=== PATIENT | female | born 1970 | race Caucasian/White ===

== ENCOUNTER 2017-04-12 14:09 | Outpatient (CLI) | payer BC ==
--- NOTE | 2017-04-12 15:56 | ULT ---
RIGHT UPPER QUADRANT ULTRASOUND 04/12/17 HISTORY: Abdominal pain. COMPARISON: None. TECHNIQUE: Utilizing multihertz transducer, sonographic imaging of the right upper quadrant is performed in the longitudinal and transverse plane. FINDINGS: There are multiple hepatic masses. Largest mass in the left hepatic lobe measures 7.8 x 8.0 x 6.4 cm. A right hepatic lobe mass measures 9.6 x 9.8 x 11.1 cm. Gallbladder is compressed. Limited evaluation. Common bile duct cannot be seen. Pancreas is poorly defined. No hydronephrosis. Right kidney measures 11.4 cm in maximum dimension. There is some compression of the main portal vein due to hepatic masses, but the main portal vein is still patent. IMPRESSION: Incompletely evaluated multiple hepatic masses. Further evaluation with CT is recommended. Results of the study discussed with Dr. Call, 04/12/17 at 3 p.m. Code CR POS: SAMANTHA
== END 2017-04-12 14:10 | disposition home or self-care (01) ==
LOC: ULT 14:09
PROVIDERS: ATTEND Internal Medicine Gastroenterology
DX: R10.11 Right upper quadrant pain (principal); K76.89 Other specified diseases of liver
CPT/HCPCS: 76705

== ENCOUNTER 2017-04-18 11:42 | Outpatient (CLI) | payer BC, OTHER ==
--- NOTE | 2017-04-18 13:59 | CT ---
CT THORAX WITH CONTRAST: DATE: 04-18-17 HISTORY: 46-year-old female with liver masses. Evaluate for pulmonary metastases. FINDINGS: There are several hepatic masses, including large ones in the left lobe. There are no suspicious pulm onary nodules. No destructive osseous lesion. There is a long metallic plate fixated to the right cla vicle by multiple screws. No mediastinal or hilar lymphadenopathy. No thoracic aortic aneurysm or dis section. No pleural effusion or pneumothorax. IMPRESSION: 1. No active intrathoracic disease. 2. Multiple hepatic masses. 3. Status post open reduction internal fixation of right clavicle, old. JUNIE Dutta POS: SAMANTHA
[2017-04-18] MEDS ORDERED: Iopamidol 250 51% 100 ML VIAL FS ONE (14:02)
== END 2017-04-18 11:43 | disposition home or self-care (01) ==
LOC: CT 11:42
PROVIDERS: ATTEND Internal Medicine Gastroenterology
DX: R16.0 Hepatomegaly, not elsewhere classified (principal); Z98.890 Other specified postprocedural states
CPT/HCPCS: 71260

== ENCOUNTER 2018-01-08 20:48 | Emergency (ER) | payer BC, OTHER ==
[2018-01-08 22:15] LABS: #Lymphocytes 1.5 thou/uL (1.20-3.40); #Neutrophils 11.7 thou/uL (1.40-6.50); %Basophils 0.3 % (0.0-1.0); %Eosinophils 0.3 % (0.0-10.0); %Lymphocytes 10.6 % (21.0-51.0); %Monocytes 7.1 % (0.0-10.0); %Neutrophils 81.6 % (42.0-75.0); Hemoglobin 15.2 g/dL (12.0-16.0); Mean Corpuscular HGB CONC 35.2 g/dL (32.0-36.0); Mean Corpuscular Hemoglobin 33.5 pg (27.0-31.0); Mean Corpuscular Volume 95.2 fL (78.0-98.0); Platelet Count 364 thou/uL (130-400); RBC Distribution Width 11.9 % (11.5-14.5); Red Blood Cell (RBC) Count 4.53 mill/uL (4.20-5.40); White Blood Cell (WBC) Count 14.3 thou/uL (4.8-10.8)
[2018-01-08 22:26] LABS: ALT (SGPT) 11 U/L (8-55); AST (SGOT) 14 U/L (5-34); Albumin 3.9 g/dL (3.5-5.0); Alkaline Phosphatase 121 U/L (40-150); Anion Gap 15 mmol/L (10-20); BUN (Urea Nitrogen) 8 mg/dL (7.0-18.7); Bilirubin, Total 0.9 mg/dL (0.2-1.2); Calc. Creatinine Clearance 0 mL/min (70-130); Calcium 10.3 mg/dL (7.8-10.44); Carbon Dioxide 24 mmol/L (22-29); Chloride 100 mmol/L (98-107); Estimated GFR-MDRD 89; Globulin 4.2 g/dL (2.4-3.5); Glucose 111 mg/dL (70-105); Lipase 9 U/L (8-78); Magnesium 2.4 mg/dL (1.6-2.6); Potassium 4.2 mmol/L (3.5-5.1); Protein, Total 8.1 g/dL (6.0-8.3); Sodium 135 mmol/L (136-145)
[2018-01-08] MEDS ORDERED: Ketorolac Tromethamine 30 MG/ML VIAL ONE (22:27)
[2018-01-08] MEDS ORDERED: Metoclopramide HCl 10 MG/2 ML VIAL ONE (22:27)
--- NOTE | 2018-01-08 22:59 | RAD ---
ABDOMEN TWO VIEWS: HISTORY: Abdominal pain. FINDINGS: There is gas and stool throughout the colon and rectum. There are no differential air-fluid levels, and there is no evidence of free subdiaphragmatic gas. A rounded calcification over the right lower quadrant is favored to represent a phlebolith. IMPRESSION: Nonspecific bowel gas pattern. POS: [facility]
[2018-01-09 00:15] LABS: Bilirubin Moderate (Negative); Blood, Urine Small (Negative); Clarity CLOUDY (Clear); Glucose, Urine (Dipstick) Negative (Negative); Leukocyte Small (Negative); Nitrite Negative (Negative); Protein, Urine (Dipstick) 30 mg/dL (Neg-Trace); Specific Gravity, Urine 1.029 (1.002-1.036)
[2018-01-09 00:18] LABS: Bacteria/HPF None Seen HPF (None Seen); Hyaline Casts/LPF 0-3 HYALINE CAST LPF (0-3 Hyaline); Pathc Cast-AUWi Flag 0.29 (0-2.49); Squamous Epithelial 0-3 HPF (0-3)
== END 2018-01-09 00:44 | disposition home or self-care (01) ==
LOC: ERS 20:48
DX: K59.00 Constipation, unspecified (principal); C7A.8 Other malignant neuroendocrine tumors
CPT/HCPCS: 74019; 80053; 81003; 81015; 83690; 83735; 85025; 87086; 96361; 96374; 96375; J1885; J2765

== ENCOUNTER 2022-03-14 09:43 | Emergency (ER) | payer BC, OTHER ==
[2022-03-14] MEDS ORDERED: Morphine 4 MG/ML VIAL ONE (11:07)
[2022-03-14] MEDS ORDERED: Ondansetron PF 4 MG/2 ML Vial ONE (11:07)
[2022-03-14 11:24] LABS: #Eosinphils 0.1 thou/uL (0.0-0.7); #Lymphocytes 1.6 thou/uL (1.20-3.40); #Monocytes 0.8 thou/uL (0.11-0.59); #Neutrophils 8.2 thou/uL (1.40-6.50); %Basophils 0.5 % (0.0-1.0); %Eosinophils 1.1 % (0.0-10.0); %Lymphocytes 15.1 % (21.0-51.0); %Monocytes 7.3 % (0.0-10.0); Hemoglobin 12.2 g/dL (12.0-16.0); Mean Corpuscular HGB CONC 32.4 g/dL (32.0-36.0); Mean Corpuscular Hemoglobin 32.2 pg (27.0-31.0); Mean Corpuscular Volume 99.5 fl (78.0-98.0); Mean Platelet Volume 6.9 fL (7.4-10.4); Platelet Count 302 thou/uL (130-400); RBC Distribution Width 13.9 % (11.5-14.5); Red Blood Cell (RBC) Count 3.79 mill/uL (4.20-5.40); White Blood Cell (WBC) Count 10.7 thou/uL (4.8-10.8)
[2022-03-14 11:31] LABS: BHCG - Serum Negative (NEGATIVE); Pregs Control Background? CLEAR/WHITE (CLR/WHITE); Pregs Control Bar Appear? YES (CONTROL BAR)
[2022-03-14 11:50] LABS: ALT (SGPT) 17 U/L (8-55); AST (SGOT) 22 U/L (5-34); Albumin 3.8 g/dL (3.5-5.0); Alkaline Phosphatase 202 U/L (40-110); Anion Gap 15 mmol/L (10-20); BUN (Urea Nitrogen) 7 mg/dL (7.0-18.7); Bilirubin, Total 1.8 mg/dL (0.2-1.2); CK (CPK) 74 U/L (29-168); Calc. Creatinine Clearance 0 mL/min (70-130); Calcium 9.7 mg/dL (7.8-10.44); Carbon Dioxide 27 mmol/L (22-29); Chloride 96 mmol/L (98-107); Estimated GFR 106; Globulin 3.4 g/dL (2.4-3.5); Glucose 135 mg/dL (70-105); Lipase Less than 4 U/L (8-78); Potassium 3.7 mmol/L (3.5-5.1); Protein, Total 7.2 g/dL (6.0-8.3); Sodium 134 mmol/L (136-145)
[2022-03-14] MEDS ORDERED: GASTROGRAFIN 30 ML BOT ONE (14:20)
[2022-03-14] MEDS ORDERED: Iopamidol-370 76% 500 ML 1 ML ONE (14:20)
== END 2022-03-14 16:02 | disposition home or self-care (01) ==
LOC: ERS 09:43
DX: C22.8 Malignant neoplasm of liver, primary, unspecified as to type (principal); C77.9 Secondary and unspecified malignant neoplasm of lymph node, unspecified
CPT/HCPCS: 74177; 80053; 82550; 83690; 84703; 85025; 96361; 96374; 96375; J2270; J2405; Q9963; Q9967

== ENCOUNTER 2023-11-01 12:05 | Outpatient (CLI) | payer MEDICARE, BC | END 2023-11-01 12:06 | disposition home or self-care (01) | LOC: BICMAMMO 12:05 | PROVIDERS: ATTEND Family Medicine | DX: Z12.31 Encounter for screening mammogram for malignant neoplasm of breast (principal); Z91.89 Other specified personal risk factors, not elsewhere classified; Z85.89 Personal history of malignant neoplasm of other organs and systems | CPT/HCPCS: 77063; 77067 ==